=== PATIENT | male | born 1975 ===

== ENCOUNTER 2017-12-28 15:58 | Emergency (ER) | payer OTHER ==
[2017-12-28] MEDS ORDERED: Sodium Chloride 0.9% 1,000 ML IV STA ×2 (17:29→20:59)
--- NOTE | 2017-12-28 17:36 | ED PDOC ---
HPI: General Adult Time Seen by Provider: 12/28/17 17:15 Chief Complaint (Nursing): GI Problem Chief Complaint (Provider): Subjective fever, vomiting, cough History Per: Patient History/Exam Limitations: no limitations Onset/Duration Of Symptoms: Days (x 1) Current Symptoms Are (Timing): Still Present Additional Complaint(s): 42 year old male with a history of asthma presents to the ED complaining of subjective fever and vomiting with associated cough productive of yellow sputum , myalgias and chills. Patient also has a history of ulcerative colitis, not taking steroids. He took Tylenol today at 16:00 with no relief. PMD: Dr. Maurice Chappell Past Medical History Reviewed: Historical Data, Nursing Documentation, Vital Signs Vital Signs: Last Vital Signs Temp 99.2 F 12/28/17 23:35 Pulse 110 H 12/28/17 22:17 Resp 16 12/28/17 22:17 BP 109/55 L 12/28/17 22:17 Pulse Ox 99 12/28/17 22:17 - Medical History PMH: Asthma, Gastritis - Surgical History Surgical History: No Surg Hx - Family History Family History: States: Unknown Family Hx - Immunization History Hx Tetanus Toxoid Vaccination: No Hx Influenza Vaccination: No Hx Pneumococcal Vaccination: No - Home Medications Home Medications: Ambulatory Orders Medication Instructions Recorded Atorvastatin [Lipitor] 20 mg PO DAILY #0 tab 09/07/15 Omeprazole 20 mg PO DAILY #0 ecc 09/07/15 predniSONE [predniSONE Tab] 20 mg PO DAILY #12 tab 16 Albuterol 0.083% [Albuterol 0.083% 3 ml IH Q6H PRN #30 neb 12/28/17 Inhal Gilda (2.5 mg/3 ml) UD] Azithromycin [Zithromax] 250 mg PO DAILY #4 tab 12/28/17 Nebulizer [Compact Compressor 1 dev XX PRN PRN #1 dev 12/28/17 Nebulizer] - Allergies Allergies/Adverse Reactions: Allergies Allergy/AdvReac Type Severity Reaction Status Date / Time nut - unspecified Allergy SWELLING Verified 12/28/17 16:19 seeds Allergy SWELLING Uncoded 12/28/17 16:19 Review of Systems ROS Statement: Except As Marked, All Systems Reviewed And Found Negative Constitutional: Positive for: Fever (subjective), Chills, Other (myalgias) Respiratory: Positive for: Cough (productive of yellow sputum) Gastrointestinal: Positive for: Vomiting Physical Exam - Reviewed Nursing Documentation Reviewed: Yes Vital Signs Reviewed: Yes - Physical Exam Appears: Positive for: Non-toxic, No Acute Distress Head Exam: Positive for: ATRAUMATIC, NORMOCEPHALIC Skin: Positive for: Normal Color, Warm, Dry Eye Exam: Positive for: EOMI, Normal appearance, PERRL Neck: Positive for: Normal, Painless ROM, Supple Cardiovascular/Chest: Positive for: Chest Non Tender, Tachycardia, Other ( regular rhythm) Respiratory: Positive for: Normal Breath Sounds. Negative for: Respiratory Distress Gastrointestinal/Abdominal: Positive for: Normal Exam, Bowel Sounds, Soft. Negative for: Tenderness Back: Positive for: Normal Inspection Extremity: Positive for: Normal ROM. Negative for: Deformity Neurologic/Psych: Positive for: Alert, Oriented. Negative for: Motor/Sensory Deficits - Laboratory Results Result Diagrams: 12/28/17 21:19 12/28/17 18:05 - ECG O2 Sat by Pulse Oximetry: 95 (RA) Pulse Ox Interpretation: Normal Medical Decision Making Medical Decision Making: Time: 17:29 Impression: influenza vs viral syndrome Initial Plan: --VBG Shock panel --EKG --CMP --CBC with differentials --Normal Saline IV 1,000 mls/hr --Zofran Inj 4 mg IVP --Blood cx --Influenza AB --Rapid Strep --Urinalysis Rapid Strep --results are negative. Influenza AB --results are negative. 21:00 Pt reexamined, abdomen remains soft, NT/ND. Administered Tylenol and 2nd L IVF. Scribe Attestation: Documented by Angle Bryant, acting as a scribe for Elba Morley MD. Provider Scribe Attestation: All medical record entries made by the Scribe were at my direction and personally dictated by me. I have reviewed the chart and agree that the record accurately reflects my personal performance of the history, physical exam, medical decision making, and the department course for this patient. I have also personally directed, reviewed, and agree with the discharge instructions and disposition. Disposition - Clinical Impression Clinical Impression: Viral syndrome - Disposition Referrals: Maurice Chappell MD [Family Provider] - Disposition: Routine/Home Disposition Time: 23:11 Condition: IMPROVED Prescriptions: Albuterol 0.083% [Albuterol 0.083% Inhal Gilda (2.5 mg/3 ml) UD] 3 ml IH Q6H PRN # 30 neb PRN Reason: Shortness Of Breath Azithromycin [Zithromax] 250 mg PO DAILY #4 tab Nebulizer [Compact Compressor Nebulizer] 1 dev XX PRN PRN #1 dev PRN Reason: Shortness Of Breath Instructions: Viral Syndrome (ED) Forms: [employer] (Singaporean)
[2017-12-28 18:02] LABS: VENOUS BLOOD GAS PCO2 54 mmHg (40-60); VENOUS BLOOD GAS PO2 15 mm/Hg (30-55); VENOUS BLOOD PH 7.34 (7.32-7.43)
--- NOTE | 2017-12-28 18:08 | RAD ---
HISTORY: Cough COMPARISON: Comparison is made with 09/06/2015 TECHNIQUE: Chest PA and lateral FINDINGS: LUNGS: No active pulmonary disease. PLEURA: No significant pleural effusion identified. No pneumothorax apparent. CARDIOVASCULAR: Normal. OSSEOUS STRUCTURES: No significant abnormalities. VISUALIZED UPPER ABDOMEN: Normal. OTHER FINDINGS: None. IMPRESSION: No active disease.
[2017-12-28 18:09] LABS: BASO % 0.2 % (0.0-2.0); HEMOGLOBIN 14.1 g/dL (12.0-18.0); LYMPH # 0.6 K/uL (1.0-4.3); LYMPH % 3.5 % (20.0-40.0); MEAN CELL VOLUME 93.9 fl (80.0-94.0); MEAN CORPUSCULAR HEMOGLOBIN 32.1 pg (27.0-31.0); MEAN CORPUSCULAR HGB CONC 34.2 g/dL (33.0-37.0); MEAN PLATELET VOLUME 9.4 fl (7.2-11.7); MONO # 0.5 K/uL (0.0-0.8); MONO % 3.2 % (0.0-10.0); NEUT # 15.9 K/uL (1.8-7.0); NEUT % 93.1 % (50.0-75.0); PLATELET COUNT 187 K/uL (130-400); RBC 4.41 Mil/uL (4.40-5.90); RED CELL DISTRIBUTION WIDTH 12.6 % (11.5-14.5)
[2017-12-28 18:18] LABS: ALB/GLOB RATIO 1.3 (1.0-2.1); ALBUMIN 4.6 g/dL (3.5-5.0); ALT/SGPT 35 U/L (21-72); AST/SGOT 29 U/L (17-59); BLOOD UREA NITROGEN 14 mg/dl (9-20); CALCIUM 9.4 mg/dL (8.4-10.2); GFR AFRICAN-AMERICAN > 60; GFR NON-AFRICAN AMERICAN > 60
[2017-12-28 18:55] LABS: URINE BILIRUBIN NEGATIVE (NEGATIVE); URINE BLOOD NEGATIVE (NEGATIVE); URINE CLARITY CLEAR (Clear); URINE COLOR YELLOW (YELLOW); URINE GLUCOSE (UA) NEG (Normal); URINE LEUKOCYTE ESTERASE NEG Leu/uL (Negative); URINE NITRATE NEGATIVE (NEGATIVE); URINE PROTEIN NEGATIVE (NEGATIVE); URINE UROBILINOGEN 0.2-1.0 mg/dL (0.2-1.0)
[2017-12-28 20:00] LABS: BANDS 7 % (0-2); EOSINOPHIL 1 % (0-7); LARGE PLATELETS PRESENT; LYMPHOCYTE 5 % (20-50); MONOCYTE 4 % (0-10); NEUTROPHIL 83 % (42-75); PLATELET ESTIMATE NORMAL (NORMAL); TOTAL CELLS COUNTED 100
[2017-12-28 21:15] VITALS: RESP 16
[2017-12-28 21:32] LABS: BASO % 0.1 % (0.0-2.0); HEMOGLOBIN 12.8 g/dL (12.0-18.0); LYMPH # 0.7 K/uL (1.0-4.3); LYMPH % 5.2 % (20.0-40.0); MEAN CELL VOLUME 94.4 fl (80.0-94.0); MEAN CORPUSCULAR HEMOGLOBIN 31.5 pg (27.0-31.0); MEAN CORPUSCULAR HGB CONC 33.4 g/dL (33.0-37.0); MEAN PLATELET VOLUME 8.6 fl (7.2-11.7); MONO # 0.4 K/uL (0.0-0.8); MONO % 2.8 % (0.0-10.0); NEUT # 12.5 K/uL (1.8-7.0); NEUT % 91.9 % (50.0-75.0); RBC 4.05 Mil/uL (4.40-5.90); RED CELL DISTRIBUTION WIDTH 12.8 % (11.5-14.5); WHITE BLOOD COUNT 13.6 K/uL (4.8-10.8)
[2017-12-28 22:18] VITALS: BP 109/55; PULSE 110
[2017-12-28] MEDS ORDERED: Albuterol-Ipratrop 3 mg / 0.5 (3 ml) UD INH STA (23:26)
[2017-12-28] MEDS ORDERED: Albuterol-Ipratrop 3 mg / 0.5 (3 ml) UD ONE (23:31)
[2017-12-29 01:46] VITALS: TEMP 99.2
--- NOTE | 2017-12-29 09:34 | CARD ---
APPROVED REPORT EKG Measurement Heart [id number] <Conclusion> Normal sinus rhythm Normal ECG
[2017-12-31 10:14] VITALS: O2SAT 95
== END 2017-12-29 | disposition home or self-care (01) ==
LOC: H.ER 15:58
DX: B34.9 Viral infection, unspecified (principal); J45.909 Unspecified asthma, uncomplicated; K51.90 Ulcerative colitis, unspecified, without complications; R00.0 Tachycardia, unspecified
CPT/HCPCS: 71046; 80053; 81003; 82803; 85025; 87040; 87070; 87430; 87804; 93005; 94640; 96374; 99285; J2405; J7040

== ENCOUNTER 2018-05-21 21:35 | Emergency (ER) | payer OTHER ==
[2018-05-21 22:22] VITALS: BP 125/84; PULSE 72; RESP 18; TEMP 98.1; O2SAT 100
--- NOTE | 2018-05-21 22:52 | ED PDOC ---
HPI: Headache Time Seen by Provider: 05/21/18 22:25 Chief Complaint (Nursing): Dizziness/Lightheaded Chief Complaint (Provider): headache, dizziness History Per: Patient History/Exam Limitations: no limitations Onset/Duration Of Symptoms: Days (3), Waxing/Waning Current Symptoms Are (Timing): Gone Now Additional Complaint(s): 42 y/o male presents for evaluation of intermittent headache with associated dizziness x 3 days. Patient states symptoms present together, dizziness describes as feeling "tired". Patient states symptoms go away with over-the- counter analgesics. Patient states he brought his father to be evaluated at the ED tonight and while sitting in the waiting room symptoms presented again so he figured he would sign up to get his blood pressure checked. Denies fever , extremity numbness/weakness, vision changes, chest pain, shortness of breath, palpitations, abdominal pain, leg pain/swelling. Patient states he is feeling better upon entering exam room. Past Medical History Reviewed: Historical Data, Nursing Documentation, Vital Signs Vital Signs: Last Vital Signs Temp 98.1 F 05/21/18 22:20 Pulse 72 05/21/18 22:20 Resp 18 05/21/18 22:20 BP 125/84 05/21/18 22:20 Pulse Ox 100 05/21/18 22:20 - Medical History PMH: Asthma, Gastritis, Hypercholesterolemia - Family History Family History: States: Unknown Family Hx - Immunization History Hx Tetanus Toxoid Vaccination: No Hx Influenza Vaccination: No Hx Pneumococcal Vaccination: No - Home Medications Home Medications: Ambulatory Orders Medication Instructions Recorded Atorvastatin [Lipitor] 20 mg PO DAILY #0 tab 09/07/15 Omeprazole 20 mg PO DAILY #0 ecc 09/07/15 predniSONE [predniSONE Tab] 20 mg PO DAILY #12 tab 09/17/16 Albuterol 0.083% [Albuterol 0.083% 3 ml IH Q6H PRN #30 neb 12/28/17 Inhal Gilda (2.5 mg/3 ml) UD] Azithromycin [Zithromax] 250 mg PO DAILY #4 tab 12/28/17 Nebulizer [Compact Compressor 1 dev XX PRN PRN #1 dev 12/28/17 Nebulizer] - Allergies Allergies/Adverse Reactions: Allergies Allergy/AdvReac Type Severity Reaction Status Date / Time nut - unspecified Allergy SWELLING Verified 05/21/18 22:20 seeds Allergy SWELLING Uncoded 05/21/18 22:20 Review of Systems ROS Statement: Except As Marked, All Systems Reviewed And Found Negative Neurological: Positive for: Headache, Dizziness Physical Exam - Reviewed Nursing Documentation Reviewed: Yes Vital Signs Reviewed: Yes - Physical Exam Appears: Positive for: Well, Non-toxic, No Acute Distress Head Exam: Positive for: ATRAUMATIC, NORMAL INSPECTION, NORMOCEPHALIC Skin: Positive for: Normal Color Eye Exam: Positive for: Normal appearance, EOMI, PERRL ENT: Positive for: Normal ENT Inspection Cardiovascular/Chest: Positive for: Regular Rate, Rhythm Respiratory: Positive for: Normal Breath Sounds Gastrointestinal/Abdominal: Positive for: Normal Exam Back: Positive for: Normal Inspection Extremity: Positive for: Normal ROM Neurologic/Psych: Positive for: Alert, Oriented. Negative for: Motor/Sensory Deficits - ECG ECG: Positive for: Viewed By Me (reviewed by ED attending) ECG Rhythm: Positive for: Sinus Rhythm O2 Sat by Pulse Oximetry: 100 - Progress ED Course And Treament: Patient refusing labs, imaging at this time; states he currently has no symptoms and just wanted his blood pressure checked. Agreeable to EKG, accucheck Patient states he has appt for outpatient blood tests ordered by his PMD tomorrow. Advised to follow up as scheduled Return precautions given Disposition - Clinical Impression Clinical Impression: Headache, Dizziness - Patient ED Disposition Is Patient to be Admitted: No Counseled Patient/Family Regarding: Studies Performed, Diagnosis, Need For Followup - Disposition Disposition: Routine/Home Disposition Time: 22:53 Condition: IMPROVED Additional Instructions: Follow up with your primary doctor in 1-2 days for further evaluation of symptoms Return to ED for worsening/concerning symptoms. Instructions: Headache, Adult, Dizziness, Nonvertigo, (DC) Forms: [employer] [facility] [employer] (Korean)
--- NOTE | 2018-05-22 08:08 | CARD ---
APPROVED REPORT EKG Measurement Heart [id number] 126P-2 [id number] <Conclusion> Normal sinus rhythm Normal ECG
== END 2018-05-21 23:10 | disposition home or self-care (01) ==
LOC: H.ER 21:35
DX: R42 Dizziness and giddiness (principal); R51 Headache; E78.00 Pure hypercholesterolemia, unspecified; J45.909 Unspecified asthma, uncomplicated

== ENCOUNTER 2019-04-07 02:58 | Emergency (ER) | payer OTHER ==
[2019-04-07 03:03] VITALS: RESP 18
--- NOTE | 2019-04-07 03:27 | ED PDOC ---
HPI: General Adult Time Seen by Provider: 04/07/19 03:19 Chief Complaint (Nursing): Respiratory Distress Chief Complaint (Provider): respiratory distress History Per: Patient (43 y/o male h/o Asthma here with coughing/wheezing x few days exacerbated by seasonal allergies. Denies any fevers/chills/vomiting/diarrhea. Patient concerned b/c he has been using nebulizing treatments repeatedly without improvement of symptoms.) Past Medical History Reviewed: Historical Data, Nursing Documentation, Vital Signs Vital Signs: Last Vital Signs Temp 98.8 F 04/07/19 03:00 Pulse 94 H 04/07/19 03:00 Resp 18 04/07/19 03:00 BP 133/84 04/07/19 03:00 Pulse Ox 95 04/07/19 03:00 Primary Care Provider: Maurice Chappell - Medical History PMH: Asthma, Gastritis, Hypercholesterolemia - Family History Family History: States: Unknown Family Hx - Immunization History Hx Tetanus Toxoid Vaccination: No Hx Influenza Vaccination: No Hx Pneumococcal Vaccination: No - Home Medications Home Medications: Ambulatory Orders Medication Instructions Recorded Atorvastatin [Lipitor] 20 mg PO DAILY #0 tab 09/07/15 Omeprazole 20 mg PO DAILY #0 ecc 09/07/15 predniSONE [predniSONE Tab] 20 mg PO DAILY #12 tab 09/17/16 Albuterol 0.083% [Albuterol 0.083% 3 ml IH Q6H PRN #30 neb 12/28/17 Inhal Gilda (2.5 mg/3 ml) UD] Azithromycin [Zithromax] 250 mg PO DAILY #4 tab 12/28/17 Nebulizer [Compact Compressor 1 dev XX PRN PRN #1 dev 12/28/17 Nebulizer] Albuterol 0.083% [Albuterol 0.083% 2.5 mg IH Q8 PRN #100 neb 04/07/19 Inhal Gilda (2.5 mg/3 ml) UD] Cetirizine HCl [Zyrtec] 10 mg PO DAILY #15 tab.rapdis 04/07/19 Fluticasone Propionate [Flonase 2 spray IN DAILY #1 spray.susp 04/07/19 Allergy Relief] predniSONE [predniSONE Tab] 3 tab PO DAILY #12 tab 04/07/19 - Allergies Allergies/Adverse Reactions: Allergies Allergy/AdvReac Type Severity Reaction Status Date / Time nut - unspecified Allergy SWELLING Verified 05/21/18 22:20 seeds Allergy SWELLING Uncoded 05/21/18 22:20 Review of Systems ROS Statement: Except As Marked, All Systems Reviewed And Found Negative Respiratory: Positive for: Shortness of Breath Physical Exam - Reviewed Nursing Documentation Reviewed: Yes Vital Signs Reviewed: Yes - Physical Exam Appears: Positive for: Well, Non-toxic, No Acute Distress Head Exam: Positive for: ATRAUMATIC, NORMAL INSPECTION, NORMOCEPHALIC Skin: Positive for: Normal Color, Warm, DRY Eye Exam: Positive for: EOMI, Normal appearance, PERRL ENT: Positive for: Normal ENT Inspection Neck: Positive for: Normal, Painless ROM Cardiovascular/Chest: Positive for: Regular Rate, Rhythm Respiratory: Positive for: Normal Breath Sounds, Decreased Breath Sounds Gastrointestinal/Abdominal: Positive for: Normal Exam, Soft Back: Positive for: Normal Inspection Extremity: Positive for: Normal ROM Neurological/Psych: Positive for: Awake, Alert, Normal Tone - ECG O2 Sat by Pulse Oximetry: 95 - Progress ED Course And Treament: prednisone 60mg x 1 dose duoneb x 1 dose Disposition - Clinical Impression Clinical Impression: Asthma exacerbation - Patient ED Disposition Is Patient to be Admitted: No - Disposition Referrals: Maurice Chappell MD [Primary Care Provider] - Disposition: Routine/Home Disposition Time: 03:31 Condition: FAIR Prescriptions: Albuterol 0.083% [Albuterol 0.083% Inhal Gilda (2.5 mg/3 ml) UD] 2.5 mg IH Q8 PRN #100 neb PRN Reason: Shortness Of Breath Cetirizine HCl [Zyrtec] 10 mg PO DAILY #15 tab.rapdis Fluticasone Propionate [Flonase Allergy Relief] 2 spray IN DAILY #1 spray.susp predniSONE [predniSONE Tab] 3 tab PO DAILY #12 tab Instructions: Avoiding Asthma Triggers, Asthma in Adults
[2019-04-07] MEDS ORDERED: Albuterol-Ipratrop 3 mg / 0.5 (3 ml) UD INH STA (03:57)
[2019-04-07 06:36] VITALS: BP 124/80; PULSE 88; TEMP 98.2; O2SAT 99
== END 2019-04-07 05:40 | disposition home or self-care (01) ==
LOC: H.ER 02:58
DX: J45.901 Unspecified asthma with (acute) exacerbation (principal)